=== PATIENT | female | born 1980 | race Caucasian/White ===

== ENCOUNTER 2018-08-10 10:20 | Emergency (ER) | payer MEDICAID ==
[~2018-08-10] VITALS: Ht 152.4 cm; Wt 78.0 kg
[2018-08-10 10:33] VITALS: Ht 152.4 cm; Wt 78.0 kg
[2018-08-10] MEDS ORDERED: ACETAMINOPHEN 325 MG TAB PO ONE (12:30)
[2018-08-10] MEDS ORDERED: ACET500C5 PO (13:45)
--- NOTE | 2018-08-10 13:48 | ERD ---
ER Documentation Chief Complaint Chief Complaint VAGINAL BLEEDING, LOWER ABDOMINAL PAIN - LMP 06/06/18 HPI 38-year-old female presents with vaginal bleeding since yesterday. She is approximately 8 weeks by dates. She was seen in another hospital this morning and brings with her ultrasound report which shows a single live intrauterine of 6 weeks 1 day. Positive heart tones. Quantitative hCG is 22,846. WBC is 13.5 hemoglobin is 11.7. Patient presents at this hospital day as she had more bleeding and clots and possible tissue after leaving the other hospital. She has minimal bleeding currently. She denies any fevers, vomiting, shortness of breath, chest pain. She is a G2 para 1. ROS All systems reviewed and are negative except as per history of present illness. Medications Home Meds Active Scripts Acetaminophen* (Tylophen*) 500 Mg Capsule, 1 CAP PO Q6H PRN for PAIN AND OR ELEVATED TEMP, #15 CAP Prov:LINO JOHNSON MD 08/10/18 Allergies Allergies: Coded Allergies: No Known Drug Allergies (Verified Allergy, Unknown, 08/10/18) PMhx/Soc Medical and Surgical Hx: pt denies Medical Hx, pt denies Surgical Hx FmHx Family History: No diabetes, No coronary disease, No other Physical Exam Vitals Vital Signs Date Temp Pulse Resp B/P (MAP) Pulse Ox O2 O2 Flow FiO2 Time Delivery Rate 08/10/18 98.9 73 19 144/63 98 10:33 (90) Physical Exam Const: No acute distress Head: Atraumatic Eyes: Normal Conjunctiva ENT: Normal External Ears, Nose and Mouth. Neck: Full range of motion. No meningismus. Resp: Clear to auscultation bilaterally Cardio: Regular rate and rhythm, no murmurs Abd: Soft, non tender, non distended. Normal bowel sounds Skin: No petechiae or rashes Back: No midline or flank tenderness Ext: No cyanosis, or edema Neur: Awake and alert Psych: Normal Mood and Affect Result Diagram: 08/10/18 1216 Results 24 hrs Laboratory Tests Test 08/10/18 12:16 White Blood Count 11.6 10^3/ul Red Blood Count 4.26 10^6/ul Hemoglobin 11.8 g/dl Hematocrit 37.0 % Mean Corpuscular Volume 86.9 fl Mean Corpuscular Hemoglobin 27.7 pg Mean Corpuscular Hemoglobin Concent 31.9 g/dl Red Cell Distribution Width 14.9 % Platelet Count 188 10^3/UL Mean Platelet Volume 11.2 fl Immature Granulocytes % 0.300 % Neutrophils % 70.7 % Lymphocytes % 21.3 % Monocytes % 6.7 % Eosinophils % 0.7 % Basophils % 0.3 % Nucleated Red Blood Cells % 0.0 /100WBC Immature Granulocytes # 0.030 10^3/ul Neutrophils # 8.2 10^3/ul Lymphocytes # 2.5 10^3/ul Monocytes # 0.8 10^3/ul Eosinophils # 0.1 10^3/ul Basophils # 0.0 10^3/ul Nucleated Red Blood Cells # 0.0 10^3/ul Urine Color ANEUDY Urine Clarity CLOUDY Urine pH 5.0 Urine Specific [place] 1.026 Urine Ketones 1+ mg/dL Urine Nitrite NEGATIVE mg/dL Urine Bilirubin NEGATIVE mg/dL Urine Urobilinogen NEGATIVE mg/dL Urine Leukocyte Esterase 2+ Ana Cristina/ul Urine Microscopic RBC > 182 /HPF Urine Microscopic WBC 68 /HPF Urine Squamous Epithelial Cells FEW /HPF Urine Bacteria FEW /HPF Urine Mucus MODERATE /HPF Urine Hemoglobin 3+ mg/dL Urine Glucose NEGATIVE mg/dL Urine Total Protein 2+ mg/dl Beta HCG, Quantitative 48547.0 mIU/ml Current Medications Medications Dose Sig/Carmen Start Time Status Last (Trade) Ordered Route PRN Stop Time Admin Dose Reason Admin 650 mg ONCE ONCE 08/10/18 DC 08/10/18 Acetaminophen PO 12:30 12:22 (Tylenol 08/10/18 12:31 Tab) Procedures/MDM ROCEDURE: US Pelvis. CLINICAL INDICATION: vaginal bleeding TECHNIQUE: Multiple sonographic images of the pelvis were obtained utilizing a transabdominal and endovaginal technique. The images were reviewed on a PACS workstation. COMPARISON: None. FINDINGS: The uterus is normal in size and demonstrates a normal appearance of the myometrium. The uterus measures 9.2 x 6.0 x 8.0 cm in size. The endometrial stripe is heterogeneous in appearance and has the thickness of 32 mm. No intrauterine gestation is noted. The ovaries are normal in size and echogenicity. Normal Doppler flow is identified in both ovaries. The right ovary measures 3.8 x 2.2 x 2.9 cm. There is a 2 cm hemorrhagic cyst in the right ovary. The left ovary measures 2.9 x 1.9 cm. No free fluid is present within the pelvis.. RPTAT: AA IMPRESSION: No intrauterine gestation visualized. Markedly thickened and heterogeneous endometrium. Further evaluation with endovaginal examination is recommended. Small hemorrhagic cyst in the right ovary. Differential diagnosis includes early , missed or ectopic . Follow-up HCG levels is recommended. .Emil Cabral MD, MD Date Time Electronically viewed and signed by .Emil Cabral MD, on 08/10/2018 12:48 Patient is Rh+. WBC is 11.6 and hemoglobin 11.8 currently. Beta hCG is 15,067. Patient is well-appearing and ambulatory throughout the ER course. Pelvic exam with sheep clipper shows osseous closed without blood or tissue in vault. Patient presents with signs and symptoms given previous results and today's results of completed miscarriage. She has decreasing hCGs. She has no signs of surgical abdomen, hemorrhaging. She will discharged home with recommendations for additional recheck of her quantitative hCG in the next 3 to 4 days as they are still quite high. She has no signs of hemorrhaging, hypovolemic shock, surgical abdomen, additional complications, ectopic . She will discharged home with Tylenol, return precautions primary care follow-up and follow-up as directed. The patient was stable with no new complaints during the ER course. Clinically, there is no current evidence to suggest meningitis, sepsis, acute abdomen, pneumonia, stroke, acute coronary syndrome, pulmonary embolism, aortic dissection or any other emergent condition appearing to require further evaluation or hospitalization. Patient counseled regarding my diagnostic impression and care plan. Prior to discharge all questions answered. Pt agrees with treatment plan and understands strict return precautions. Pt is instructed to follow up with primary care provider within 24-48 hours. Precautionary instructions provided including instructions to return to the ER if not improving or for any worsening or changing symptoms or concerns. Disclaimer: Inadvertent spelling and grammatical errors are likely due to EHR/dictation software use and do not reflect on the overall quality of patient care. Also, please note that the electronic time recorded on this note does not necessarily reflect the actual time of the patient encounter. Departure Diagnosis: Primary Impression: Vaginal bleeding in patient at less than 20 weeks ges... Condition: Stable Patient Instructions: Miscarriage, Spontaneous (Completed) Referrals: NO PRIMARY,CARE PHYSICIAN (PCP) [place] [id number] [facility] [address] [place] [address] OFFICE FAX , [facility] [address] [place] [address] [facility] [address] [place] [address] [address], [facility] [address] [facility] [address] [facility] [address] [address], [facility] [address] [place] [address] [facility] [address] [place] [address] [phone] [facility] [id number] - [address], [facility] [address] [address] SUE, [place] [address] [facility]. [address], [facility] [address] [address], [facility] [address] [place], [place] [id number] Additional Instructions: no puedo flash un emabarazo horita. cheque con andre doctor esta semana / los hormones otro vez 3-4 campos. Cheque otro vez con andre doctor primario en el proximo campos or regresa para mas o nueva simptomas- fiebre, mas jay jay / dolor. LINO JOHNSON MD August 10, 2018 13:48
[2018-08-10 14:20] VITALS: BP 112/71; PULSE 91; RESP 20
== END 2018-08-10 14:21 | disposition home or self-care (01) ==
LOC: FTE 10:20
DX: O20.9 Hemorrhage in early pregnancy, unspecified (principal); Z3A.08 8 weeks gestation of pregnancy
CPT/HCPCS: 76801; 81001; 84702; 85025; 86900; 86901; Z7502; Z7610